=== PATIENT | female | born 1990 | race Caucasian/White ===

== ENCOUNTER 2022-04-05 12:29 | Emergency (ER) | payer MEDICAID, SELFPAY ==
--- NOTE | ~2022-04-05 | XR_ITS ---
EXAMINATION: XR KNEE, RIGHT CLINICAL INFORMATION: Fall. Right knee swelling. COMPARISON: None TECHNIQUE: Four views of the right knee. FINDINGS: No fracture or dislocation. Suprapatellar soft tissue density may reflect a small joint effusion. XR/XR knee RT 4V IMPRESSION: Possible small suprapatellar joint effusion. No fracture seen.
--- NOTE | ~2022-04-05 | XR_ITS ---
EXAMINATION: XR ELBOW, LEFT CLINICAL INFORMATION: Fall with left elbow pain COMPARISON: None TECHNIQUE: AP, lateral, and oblique views of the left elbow. FINDINGS: The bones and soft tissues are normal. No fracture or joint effusion. Alignment is anatomic. Joint spaces are maintained. XR/XR elbow LT min 3V IMPRESSION: Normal left elbow.
[2022-04-05 13:10] VITALS: BP 149/76; PULSE 90; RESP 18; TEMP 36.3; O2SAT 98; BMI 47.2
--- NOTE | 2022-04-05 14:17 | ED_ITS ---
HPI - General Adult General Chief complaint: Extremity Injury, Lower Stated complaint: R knee pain/L arm pain from fall Time Seen by Provider: 04/05/22 14:14 Source: patient Mode of arrival: ambulatory Limitations: no limitations History of Present Illness HPI narrative: Patient is a 31 year old assigned female at with no reported medical history presenting to the emergency department today with right knee pain and left elbow pain. Patient states that a few weeks ago she attempted to break up a dog fight and fell, landing on her right knee. Patient states that since then, she has had pain to her right knee and left elbow. Patient states that she has previously had issues with the left rotator cuff. Patient denies any dizziness, lightheadedness, abdominal pain, nausea, vomiting, fever, chills, blurry vision, double vision, loss of vision, chest pain, difficulty breathing, shortness of breath, back pain, night sweats, pain with urination, increased urinary frequency, increased urinary urgency, blood in her urine or stool, syncope or a near syncopal episode, bowel incontinence, bladder incontinence, bowel retention, bladder retention, or any other complaints at this time. Onset (ago): week(s) Radiation: non-radiation Severity: mild Severity scale (1-10): 3 Quality: dull Pain Consistency: constant Relieving factors: none Exacerbating factors: none Associated symptoms: denies other symptoms Treatments prior to arrival: none Related Data Allergies Allergy/AdvReac Type Severity Reaction Status Date / Time morphine Allergy Anaphylaxis Verified 04/05/22 13:09 Review of Systems Constitutional: Constitutional: Reports no additional constitutional complaints, Denies chills, Denies fever(s) and Denies night sweats Eyes: Eyes: Reports no additional eye complaints, Denies blurry vision, Denies change in vision, Denies diplopia, Denies eye discharge, Denies loss of vision and Denies eye pain ENT: Denies dizziness Cardiovascular: Cardiovascular: Reports no additional cardiovascular complaints, Denies chest pain, Denies lightheadedness, Denies Loss of Consciousness and Denies dyspnea Respiratory: Respiratory: Reports no additional respiratory complaints and Denies dyspnea Gastrointestinal: Gastrointestinal: Reports no additional gastrointestinal complaints, Denies abdominal pain, Denies melena, Denies hematochezia, Denies change in bowel habits and Denies change in stool character Genitourinary: Genitourinary: Denies hematuria, Denies urinary frequency, Denies dysuria, Denies urinary incontinence, Denies urinary hesitancy and Denies urinary urgency Musculoskeletal: Musculoskeletal: Reports no additional musculoskeletal complaints, Denies numbness and Denies tingling Comments: right knee pain, left elbow pain Neurologic: Denies dizziness, Denies loss of vision, Denies numbness and Denies tingling Psychiatric: Psychiatric: Reports no additional psychiatric complaints Endocrine: Endocrine: Reports no additional endocrine complaints Hematologic/Lymphatic: Hematologic/Lymphatic: Reports no additional hematologic/lymphatic complaints Allergic/Immunologic: Allergic/Immunologic: Reports no additional allergic/i mmunologic complaints [facility] Past Medical History Attestation statement: The following information was validated with the patient. Source: old records reviewed Social History Social History Advance Directives: Yes Advance Directives Information Provided: Yes Advance Directives on File: No Physical Exam ED Vital Signs: Vital Signs - 24 hr 04/05/22 13:10 Temperature 97.4 F Pulse Rate 90 Respiratory Rate 18 Blood Pressure 149/76 H Pulse Oximetry 98 Oxygen Delivery Method Room Air BMI result Body Mass Index 47.2 Const General: cooperative, no acute distress, alert and awake Nutritional Appearance: well nourished Orientation/consciousness: patient oriented x3 Limitations: no limitations HENMT Head: Yes normal to inspection and Yes atraumatic Ears: hearing grossly normal bilaterally and external ears normal General nose exam: Normal external nose present, no nasal discharge noted and no epistaxis Face and sinus: Yes normal facial exam, No abrasion and No laceration Mouth: Normal oral and palatal mucosa present, no drooling and no muffled voice Eyes General: appearance normal, both eyes and all related structures Periorbital: periorbital findings normal Eyelids: Yes eyelids normal Conjunctivae: conjunctivae normal Pupils: Equal, round and reactive pupils present EOM: EOMs intact bilaterally Neck Neck: Yes normal visual inspection, Yes full ROM and Yes no lymphadenopathy Chest Chest palpation & inspection: normal inspection of the chest Resp Effort & Inspection: normal respiratory effort and able to speak in complete sentences Auscultation: clear to auscultation bilaterally Cardio Rate: regular rate Rhythm: regular rhythm GI Inspection: Yes normal to inspection Neuro General: patient oriented x3 and moves all extremities Cranial nerves: Yes Equal, round and reactive pupils present Cognition (Neuro): normal cognition Motor exam (neuro): 5/5 motor strength present throughout Sensory Exam: Normal double simultaneous stimulation for sensation Coordination: [id number] test normal Extrem General: Yes normal to inspection, Yes full ROM and Yes capillary refill normal Psych Appearance: grossly normal Mental Status: mental status grossly normal Affect: normal affect Attitude: cooperative Thought process: Normal thought process present Thought content: Normal thought content present Insight: Good insight present (Psych) Medical Decision Making MDM Narrative Medical decision making narrative: Patient is a 31 year old assigned female at with no reported medical history presenting to the emergency department today with right knee pain and left elbow pain. Patient's physical exam was unremarkable. Patient's left elbow and right knee x-rays showed no acute process. I explained my physical exam findings as well as all test results to the patient. I answered all questions asked by the patient. I stressed the importance of the patient taking her medication as prescribed. I stressed the importance of the patient following up with her primary care provider. I stressed the importance of the patient returning to the emergency department immediately if her symptoms were to worsen or if she were to develop any dizziness, shortness of breath, difficulty breathing, chest pain, blurry vision, loss of vision, nausea, vomiting, abdominal pain, fever, chills, back pain, or any other complaints. Patient verbalized agreement and understanding with this treatment plan and discharge. Medical Records Medical records reviewed: Yes I reviewed the patient's medical records. Imaging Data Left elbow x-ray: Attestation: I personally reviewed and interpreted this imaging study as follows: My impression: No acute process. Radiologist's impression: EXAMINATION: XR ELBOW, LEFT CLINICAL INFORMATION: Fall with left elbow pain? COMPARISON: None? TECHNIQUE: AP, lateral, and oblique views of the left elbow. FINDINGS: The bones and soft tissues are normal. No fracture or joint effusion. Alignment is anatomic. Joint spaces are maintained.? XR/XR elbow LT min 3V IMPRESSION: Normal left elbow. Dictated By: Rufino Wagner Signed By: Electronically signed by Rufino?Bernard 04/05/22 1429 Right knee x-ray: Attestation: I personally reviewed and interpreted this imaging study as follows: My impression: No acute process. Radiologist's impression: EXAMINATION: XR KNEE, RIGHT? CLINICAL INFORMATION: Fall. Right knee swelling.? COMPARISON: None? TECHNIQUE: Four views of the right knee. FINDINGS: No fracture or dislocation. Suprapatellar soft tissue density may reflect a small joint effusion.? XR/XR knee RT 4V IMPRESSION: Possible small suprapatellar joint effusion. No fracture seen. Dictated By: Rufino Gilmore MD Signed By: Electronically signed by Rufino Gilmore MD 04/05/22 1417 Discharge Plan Discharge Clinical Impression: Fall Patient Disposition: Home, Self-Care Instructions: Fall Prevention (ED) Additional Instructions: Follow up with your primary care provider and if pain persists, an orthopedic provider. Return to the emergency department immediately if your symptoms worsen or if you develop any dizziness, shortness of breath, difficulty breathing, chest pain, blurry vision, loss of vision, nausea, vomiting, abdominal pain, fever, chills, back pain, or any other complaints. Referrals: [facility] – [place] Family Medicine [Provider Group] (Call to establish and follow up with a primary care provider. If you already have a primary care provider, please follow up with them. ) [facility] – [place] Primary Care, [facility] [Provider Group] (Call to establish and follow up with a primary care provider. If you already have a primary care provider, please follow up with them. ) [facility] – [place] Primary Care,[facility]ayana [Provider Group] (Call to establish and follow up with a primary care provider. If you already have a primary care provider, please follow up with them. ) [facility] – [place] [facility] [Provider Group] (If your pain persists, call to establish and follow up with an orthopedic provider. ) Stand Alone Forms: Work/School Release Interventions: ED Discharge Assessment Last Done: 04/05/22 15:07 Discharge Date/Time: 04/05/22 15:07 Print Language: [place]
--- NOTE | 2022-04-05 15:04 | PC.NURSE ---
Discharge instructions provided to pt. Pt verbalizes understanding.
== END 2022-04-05 15:07 | disposition home or self-care (01) ==
PROVIDERS: Emergency Provider Emergency Medicine
DX: M25.561 Pain in right knee (principal); M25.522 Pain in left elbow; Z91.81 History of falling
CPT/HCPCS: 73080; 73564; 99283

== ENCOUNTER 2022-11-27 16:16 | Emergency (ER) | payer OTHER, SELFPAY ==
--- NOTE | ~2022-11-27 | XR_ITS ---
EXAMINATION: XR HIP, RIGHT CLINICAL INFORMATION: Pain COMPARISON: None available. TECHNIQUE: Two views of the right hip. Pelvis one view. FINDINGS: No radiographic evidence of acute fracture. Striated lucencies projected over the proximal femur appear to be related to overlapping densities. Alignment is anatomic. Hip joint space is maintained. Left hip alignment is anatomic. Hip joint space is maintained. No acute pelvic fractures identified. SI joints and symphysis pubis are intact. Probable small phlebolith in the pelvis. XR/XR hip RT w PEL1V IMPRESSION: No radiographic evidence of acute fracture or dislocation.
--- NOTE | ~2022-11-27 | XR_ITS ---
EXAMINATION: XR LUMBOSACRAL SPINE CLINICAL INFORMATION: Numbness, pain right lower extremity COMPARISON: None available. TECHNIQUE: Three views of the lumbosacral spine. FINDINGS: Vertebral body heights are maintained. No evidence of acute fracture. The disc spaces are preserved. Few small foci of calcification / endplate spurs in the lower thoracic spine.. Posterior elements appear intact No diastasis of the SI joints. Limited SI joint evaluation on the provided views. No acute pelvic fractures identified.. 4 mm density in the right upper quadrant, nonspecific, could reflect bowel content, renal calculus or gallstone. Nonobstructive bowel gas pattern. XR/XR lumbar spine 2-3V IMPRESSION: No evidence of acute fracture or subluxation..
[2022-11-27 16:37] VITALS: BP 141/85; PULSE 93; RESP 18; TEMP 36.4; O2SAT 99; BMI 48.1
--- NOTE | 2022-11-27 16:37 | ED_ITS ---
HPI - Extremity Problem General Chief complaint: General Medical Stated complaint: right thigh numbness and pain Time Seen by Provider: 11/27/22 17:12 Source: patient Mode of arrival: ambulatory Limitations: no limitations History of Present Illness HPI Narrative: 32 yo female with history of morbid obesity, asthma, who presents to the ER for evaluation of worsening non-traumatic right lateral thigh pain and numb sensation for the last 1 week. 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 Denies back pain or injury. she states the pain is sharp and sometimes burning in nature. no rash. it is worse when she touches the right lateral thigh and when she walks. she denies any known injury. denies weakness in the leg. MD Complaint: extremity pain Onset (ago): week(s) (1) Pain Consistency: constant and other (worsening) Location: right and lower extremity Severity scale (1-10): 8 Quality: burning, aching and sharp Radiation: none Relieving factors: immobilization Exacerbating factors: walking and palpation Associated symptoms: denies other symptoms Related Data Previous Rx's Medication Instructions Recorded cyclobenzaprine 10 mg tablet 10 mg PO TID PRN muscle spasm #14 11/27/22 tabs prednisone 50 mg tablet 50 mg PO DAILY #5 tabs 11/27/22 Allergies Allergy/AdvReac Type Severity Reaction Status Date / Time morphine Allergy Anaphylaxis Verified 04/05/22 13:09 shellfish derived Allergy Anaphylaxis Verified 11/27/22 16:42 Review of Systems Review of Systems: Yes all other systems are reviewed and are negative [facility] Social History Social History Alcohol intake: never Smoked in Last 30 Days: No Use of substances other than those prescribed or required for medical reasons: No Advance Directives: No Advance Directives Information Provided: No Physical Exam Vital Signs: Vital Signs: Last Vital Signs Temp 97.6 F 11/27/22 16:37 Pulse 89 11/27/22 19:16 Resp 19 11/27/22 19:16 BP 145/87 H 11/27/22 19:16 Pulse Ox 99 11/27/22 19:16 O2 Del Method Room Air 11/27/22 19:16 BMI result Body Mass Index 48.1 Appearance: Alert. Oriented X3. No acute distress. Head: normocephalic, atraumatic. Eyes: Pupils equal, round and reactive to light. ENT: Pharynx normal. No tonsillar swelling or exudate. Neck: Normal inspection. Neck supple. CVS: Normal heart rate and rhythm. Pulses normal. Respiratory: No respiratory distress. Breath sounds normal. Abdomen: Obese Soft and nontender. +BS x4 Skin: Skin warm and dry. Normal skin color. Normal skin turgor. No rashes. Extremities: Normal inspection of the bilateral lower extremities. lower extremity edema. No joint swelling. right lateral thigh tender to palpation without any overlying skin changes or palpable abnormality. normal ROM of the right hip and right knee. no tenderness of the lumbar area or spine Neuro/psych: Oriented X 3. normal reflexes. sensory deficit of a large area on the right lateral thigh, no motor deficits. CN II-XII intact. Normal speech and cognition. Antalgic gait Medical Decision Making Medical Decision Making MDM Narrative: 32 yo female presents to the ER for evaluation of right lateral thigh pain and numb sensation, worsening over 1 week. area is tender. primary complaint is pain with some alteration in sensation but no full numbness. neuro exam otherwise nonfocal. xrays of the lumbar spine and hip are unremarkable. concern for possible neuropathic pain - will start on short course of steroids and muscle relaxers, haver her follow up with her PCP. return precautions discussed. stable for d/c home, patient agrees w/ plan and all questions were answered. Differential Diagnosis Differential Diagnoses: The differential diagnosis associated with the presentation includes sciatica, lumbar radiculopathy, muscle strain/spasm, early zoster, less likely central neurological process like stroke or MS Independent Interpretation I performed an independent interpretation of an: Plain X-Ray Interpretation: xrays lumbar spine and right hip reviewed - no acute fx, agree w/ radiology read Radiology Impression Discussion of test interpretation with radiology: I have reviewed the radiologist's reading. Radiologist Impression: XR/XR lumbar spine 2-3V IMPRESSION: No evidence of acute fracture or subluxation.. XR/XR hip RT w [id number] IMPRESSION: No radiographic evidence of acute fracture or dislocation. External Record Review External record reviewed: Prior outpatient radiology Prescription Management I considered prescription management with: Pain Medication Chronic Conditions Patient?s care impacted by: Other (morbid obesity) Critical Care Time Critical Care Time Critical Care Time: No Discharge Plan Discharge Clinical Impression: Neuropathic pain of right thigh Patient Disposition: Home, Self-Care Instructions: Paresthesia (ED) Additional Instructions: your x-rays today were unremarkable take the prescribed medications as directed - you pain is likely nerve related follow up with a primary care physician for ongoing management If you develop new or worsening symptoms call 911 or come back to the ER for further evaluation. Prescriptions: New prednisone 50 mg tablet 50 mg PO DAILY Qty: 5 0RF cyclobenzaprine 10 mg tablet 10 mg PO TID PRN (Reason: muscle spasm) Qty: 14 0RF Referrals: [facility] – [place] [facility] [Provider Group] [facility] – [place] [facility] [Provider Group] Stand Alone Forms: Work/School Release Interventions: ED Discharge Assessment Last Done: 11/27/22 19:17 Discharge Date/Time: 11/27/22 19:17
--- OUTSIDE RECORDS SUMMARY | 2022-11-27 17:44 | XMS_ITS | Patient Health Record ---
Author Name Unknown Organization [facility] 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 Problem Depression F32.9 confirmed [id number] Problem Insomnia G47.00 confirmed [id number] ALLERGIES Allergen (clinical drug ingredient) Drug/Non Drug Allergy documented on EMR Reaction Allergy Type Onset Date Status morphine Morphine Sulfate([facility] Code:[address]-36) anaphylaxis Drug Allergy Active Shellfish shellfish anaphylaxis Non Drug Allergy A ctive ENCOUNTERS from 1989 to 2022-11-27 Encounter Location Date Provider Diagnosis [place] [id number] [id number] Dec, Franklin Selam [facility] [address] [id number] Dec, Mirna Sanchez (IM PGY3) [address] [id number] Dec, Katie Fitch ( PGY3) Anxiety disorder F41.9 ; Screening for endocrine disorder Z13.29 ; Bruising T14.8XXA ; Muscle spasm M62.838 and Migraine G43.909 [facility] Main [address] [place] [address] 10 Apr, 2020 [facility] [address] [place] [address] Mar, [facility] Encounter for laboratory testing for COVID-19 virus Z11.[address] [id number] 12 Mar, 2020 Mirna Sanchez (IM PGY3) URI with cough and congestion J06.9 ; Encounter to establish care Z76.89 ; Screening for endocrine disorder Z13.29 ; Migraine G43.909 ; Depression F32.9 ; Anxiety disorder F41.9 and Insomnia G47.00 [facility] Main [address] [place] [address] 07 Mar, [address] [id number] Feb, Provider Dummy [address] [id number] Feb, Provider Dummy SOCIAL HISTORY Tobacco Use: Social History Observation Description Date Details (start date - stop date) Current Smoker Sex Assigned At : Social History Observation Description Sex Assigned At Female Tobacco Use/Smoking Question Answer Notes Are you a current smoker How many cigarettes a day do you smoke? 6-10 How often do you smoke cigarettes? every day Sexual History Question Answer Notes Had sex in the past 12 months (vaginal, oral, or anal)? Yes Last menstrual period 12/14/2020 Have you ever had a Sexually transmitted disease ? No with Men only Use protection? No REASON FOR REFERRAL No Information VITAL SIGNS from 1989 to 2022-11-27 Temperature 99.4 degrees Fahrenheit Dec, Heart Rate 97 /min Dec, Weight 298.2 lbs Dec, BMI 51.18 kg/m2 Dec, Height 64.0 in Dec, Respiratory Rate 17 /min Dec, Height-cm 162.56 cm Dec, Weight-kg 135.26 kg Dec, Blood pressure systolic 140 mm Hg Dec, Blood pressure diastolic 99 mm Hg Dec, MEDICATIONS Medication SIG (Take, Route, Frequency, Duration) Notes Start Date End Date Status SEROquel 50 MG 1 tablet at bedtime Orally Once a day Not-Taking traZODone HCl 100 MG 1 tablet at bedtime Orally Once a day Not-Taking Sertraline HCl 100 MG 1 tablet Orally Once a day Not-Taking busPIRone HCl 10 MG 1 tablet Orally Twic e a day Not-Taking REASON FOR VISIT No Information MEDICAL (GENERAL) HISTORY Type Description Date Medical History Depression Medical History Anxiety disorder Medical History Insomnia Medical History 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 Surgical History 4 C-sections with tubal ligatio n MENTAL STATUS No Information ASSESSMENTS Encounter Date Diagnosis Assessment Notes Treatment Notes Treatment Clinical Notes Dec, Anxiety disorder (ICD-10 - F41.9) 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 will be restarting Seroquel soon per the patient, will receive prescription from other MD Dec, Screening for endocrine disorder (ICD-10 - Z13.29) patient having vague symptoms of weight gain and no appetite has bruising on her back with no associated trauma will order tests to evaluate her electrolyte imbalance as a possible reason for muscle cramps will order tests to check for anemia, hypothyroidism, and any platelet abnormalities Dec, Bruising (ICD-10 - T14.8XXA) bruises easily Bleads from her gums on flossing likely to have platelet disorder or von Willebrand, further blood tests to follow Dec, Muscle spasm (ICD-10 - M62.838) Poor appetite, drinking lots of water Encouraged patient to drink Gatorade and each whatever she is able to tolerate Dec, Migraine (ICD-10 - G43.909) worsening for the past six months reports chronic migraines almost every day has not had any abortive or prophylactic therapy as of yet will discuss at next visit and consider starting beta lisbeth Dec, Other Discussed with resident-agree with assessment and plan- Minimal change disease. H/o Anemia- Cramping- No proper diet- labs ordered. Depressed on no meds. Ahmed Apr, Other Stay quarantine d until you receive results from [facility]/Health Department. We will notify you of a positive or negative result. If you feel your symptoms are worsening or are in any respiratory distress, please call the nearest emergency room. Explain to them your condition and that you are on surveillance for COVID19 and ask them to instruct you further. Please do not walk into an emergency room without calling ahead. If you have any further complaints or concerns, please call our office at . Two kinds of tests are available for COVID-19: viral tests and antibody tests.A viral test tells you if you have a current infection (this is the one we are conducting)An antibody test tells you if you had a previous infectionAn antibody test may not be able to show if you have a current infection, because it can take 1-3 weeks after infection to make antibodies. We do not know yet if having antibodies to the virus can protect someone from getting infected with the virus again, or how long that protection might last. RESULTS If you test positive for COVID-19 by a viral test, you should remain quarantined for 10 days since symptoms first appeared. You should be 3 days (72 hours) fever-free without the use of any anti-pyretics (fever-reducing medication). Symptoms must be improving. Note, because symptoms cannot be used to gauge where these individuals are in the course of their illness, it is possible that the duration of viral shedding could be longer or shorter than 10 days after their first positive test. As a result, we advise you be retested prior to returning to work.If you test negative for COVID-19 by a viral test, you probably were not infected at the time your sample was collected. However, that does not mean you will not get sick. The test result only means that you did not have COVID-19 at the time of testing. If you test positive or negative for COVID-19, no matter the type of test, you still should take preventive measures to protect yourself and others. Mar, Encounter for laboratory testing for COVID-19 virus (ICD-10 - Z11.59) Stay quarantined until you receive results from [facility]/Health Department. We will notify you of a positive or negative result. If you feel your symptoms are worsening or are in any respiratory distress, please call the nearest emergency room. Explain to them your condition and that you are on surveillance for COVID19 and ask them to instruct you further. Please do not walk into an emergency room without calling ahead. If you have any further complaints or concerns, please call our office at . Mar, Other Two kinds of te sts are available for COVID-19: viral tests and antibody tests.A viral test tells you if you have a current infection (this is the one we are conducting)An antibody test tells you if you had a previous infectionAn antibody test may not be able to show if you have a current infection, because it can take 1-3 weeks after infection to make antibodies. We do not know yet if having antibodies to the virus can protect someone from getting infected with the virus again, or how long that protection might last. RESULTS If you test positive for COVID-19 by a viral test, you should remain quarantined for 10 days since symptoms first appeared. You should be 3 days (72 hours) fever-free without the use of any anti-pyretics (fever-reducing medication). Symptoms must be improving. Note, because symptoms cannot be used to gauge where these individuals are in the course of their illness, it is possible that the duration of viral shedding could be longer or shorter than 10 days after their first positive test. As a result, we advise you be retested prior to returning to work.If you test negative for COVID-19 by a viral test, you probably were not infected at the time your sample was collected. However, that does not mean you will not get sick. The test result only means that you did not have COVID-19 at the time of testing. If you test positive or negative for COVID-19, no matter the type of test, you still should take preventive measures to protect yourself and others. Mar, URI with cough and congestion (ICD-10 - J06.9) - Ptn with symptoms of now improving non-productive cough, SOB, loss of smell and taste - Suspicious of Covid-19 infection - Seen at [facility] ED 1 week ago, CXR done negative for pneumonia - Completed 5 day course of Azithromycin and Prednisone - F/u Covid results Mar, Encounter to establish care (ICD-10 - Z76.89) - New ptn, telephone encounter - ptn encouraged to come in person for further assessment Mar, Screening for endocrine disorder (ICD-10 - Z13.29) - 8 month history of fatigue, insomnia, headaches, hair shedding, sores on tongue, abdominal pain, intermittent spotting between regular periods, constipation and butterfly rash on face - Consider Hypothyroidism vs SLE - FHx significant for autoimmune disease, but ptn unaware of which one/s specifically - Ptn encouraged to make an in-ptn appointment for in person evaluation and lab tests as soon as possible Mar, Migraine (ICD-10 - G43.909) - C/o intermittent sharp headaches starting from base of skull with readiation to right denominational, associated with nausea and lasting hours to 1-2 days - Sensitivity to light and sound; relieved by rest - Ptn encouraged to come in for further evaluation - Recommend Tylenol or NSAID for symptom control/ Mar, Depression (ICD-10 - F32.9) - On Sertraline - Follows with Psychiatrist at [facility] Mar, Anxiety disorder (ICD-10 - F41.9) - On Buspirone - Follows with Psychiatrist at [facility] Mar, Insomnia (ICD-10 - G47.00) - On Trazadone 100 but states that medication is no longer effective - Encourgaed to use melatonin 10mg along with Trazodone - Insomnia likely secondary to underlying autoimmune disease, further investigation required PLAN OF TREATMENT Treatment Notes Assessment Notes Clinical Notes Anxiety disorder patient currently [facility] psychiatrist as well as payroll therapist will be restarting Seroquel soon per the patient, will receive prescription from other MD Insomnia - On Trazadone 100 b ut states that medication is no longer effective - Encourgaed to use melatonin 10mg along with Trazodone - Insomnia likely secondary to underlying autoimmune disease, further investigation required URI with cough and congestion - Ptn with symptoms of now improving non-productive cough, SOB, loss of smell and taste - Suspicious of Covid-19 infection - Seen at [facility] ED 1 week ago, CXR done negative for pneumonia - Completed 5 day course of Azithromycin and Prednisone - F/u Covid results Encounter to establish care - New ptn, t elephone encounter - ptn encouraged to come in person for further assessment Screening for endocrine disorder patient having vague symptoms of weight gain and no appetite has bruising on her back with no associated trauma will order tests to evaluate her electrolyte imbalance as a possible reason for muscle cramps will order tests to check for anemia, hypothyroidism, and any platelet abnormalities Encounter for laboratory medardo ting for COVID-19 virus Stay quarantined until you receive results from [facility]/Health Department. We will notify you of a positive or negative result. If you feel your symptoms are worsening or are in any respiratory distress, please call the nearest emergency room. Explain to them your condition and that you are on surveillance for COVID19 and ask them to instruct you further. Please do not walk into an emergency room without calling ahead. If you have any further complaints or concerns, please call our office at . Bruising bruises easily Bleads from her gums on flossing likely to have platelet disorder or von Willebrand, further blood tests to follow Screening for endocrine disorder - 8 mon history of fatigue, insomnia, headaches, hair shedding, sores on tongue, abdominal pain, intermittent spotting between regular periods, constipation and butterfly rash on face - Consider Hypothyroidism vs SLE - FHx significant for autoimmune disease, but ptn unaware of which one/s specifically - Ptn encouraged to make an in-ptn appointment for in person evaluation and lab tests as soon as possible Anxiety disorder - On Buspirone - Follows with Psychiatrist at [facility] Depression - On Sertraline - Follows with Psychiatrist at [facility] Migraine - C/o intermittent s harp headaches starting from base of skull with readiation to right denominational, associated with nausea and lasting hours to 1-2 days - Sensitivity to light and sound; relieved by rest - Ptn encouraged to come in for further evaluation - Recommend Tylenol or NSAID for symptom control/ Muscle spasm Poor appetite, drink ing lots of water Encouraged patient to drink Gatorade and each whatever she is able to tolerate Migraine worsening for the pa st six months reports chronic migraines almost every day has not had any abortive or prophylactic therapy as of yet will discuss at next visit and consider starting beta lisbeth Pending Tests Test Name Order Date CBC With Differential/Platelet-[facility] 2020 Magnesium - Total, Blood 2020-12-18 TSH reflex to T4F 2020-12-18 Basic Metabolic Panel (8) 2020-12-18 von Willebrand Factor Screen 2020-12-18 Insurance Providers Payer Name Payer Address Payer Phone Insured Name Patient Relationship to Insured Coverage Start Date Coverage End Date Subscriber Number Group Number [facility] [address] [facility] [id number] Daphney Angel Self - patient is the insured [id number]
[2022-11-27 19:16] VITALS: BP 145/87; PULSE 89; RESP 19; O2SAT 99
== END 2022-11-27 19:17 | disposition home or self-care (01) ==
PROVIDERS: Emergency Provider Emergency Medicine
DX: G57.81 Other specified mononeuropathies of right lower limb (principal); M79.604 Pain in right leg; R60.0 Localized edema; E66.01 Morbid (severe) obesity due to excess calories; Z68.42 Body mass index [BMI] 45.0-49.9, adult
CPT/HCPCS: 72100; 73502; 99283

== ENCOUNTER 2023-07-14 09:35 | Emergency (ER) | payer SELFPAY ==
[2023-07-14 09:41] VITALS: BP 147/85; PULSE 74; RESP 20; TEMP 37.2; O2SAT 98; BMI 51.5
--- NOTE | 2023-07-14 10:15 | ED.GENADULT ---
HPI - General Adult General Chief complaint: Dental/Oral Stated complaint: l jaw swelling Time Seen by Provider: 07/14/23 10:15 Source: patient Mode of arrival: ambulatory History of Present Illness HPI narrative: Patient is a 32-year-old female presenting to the emergency department with complaint of left upper jaw pain. States that she lost a filling to her molar around 1 year ago. States pain became severe over the past few days. Denies fevers/chills/sweats. Denies any difficulty swallowing. Does report increased pain with opening jaw but is able to open and close jaw. Denies any difficulty swallowing. States does not currently have a dentist. Denies any discharge or drainage. MD complaint: Dental pain Onset (ago): day(s) Location: mouth Severity: severe Quality: aching Pain Consistency: constant Relieving factors: none Exacerbating factors: eating Associated symptoms: denies other symptoms Treatments prior to arrival: none Related Data Previous Rx's Medication Instructions Recorded cyclobenzaprine 10 mg tablet 10 mg PO TID PRN muscle spasm #14 11/27/22 tabs prednisone 50 mg tablet 50 mg PO DAILY #5 tabs 11/27/22 amoxicillin 875 mg-potassium 1 tab PO BID #14 tabs 07/14/23 clavulanate 125 mg tablet ibuprofen 600 mg tablet 600 mg PO Q6H PRN pain #20 tabs 07/14/23 Allergies Allergy/AdvReac Type Severity Reaction Status Date / Time morphine Allergy Anaphylaxis Verified 07/14/23 09:44 shellfish derived Allergy Anaphylaxis Verified 07/14/23 09:44 Review of Systems Review of Systems: As per HPI. Yes all other systems are reviewed and are negative Constitutional: Constitutional: Reports as per HPI [facility] Social History Social History Alcohol intake: never Advance Directives: No Physical Exam ED Vital Signs: Vital Signs - 24 hr 07/14/23 09:41 Temperature 98.9 F Pulse Rate 74 Respiratory Rate 20 Blood Pressure 147/85 H Pulse Oximetry 98 Oxygen Delivery Method Room Air BMI result Body Mass Index 51.5 Vital signs have been reviewed and appear to be correct. Blood pressure normal. Heart rate normal. Respiratory rate normal. Temperature normal. Oxygen saturation normal. Const General: cooperative, healthy appearing and no acute distress Orientation/consciousness: oriented to person, oriented to place, oriented to time and patient oriented x3 Limitations: no limitations [facility] Head: Yes normocephalic and Yes atraumatic Ears: external ears normal General nose exam: Normal external nose present Face and sinus: Yes normal facial exam, Yes face symmetric, No edema and No sinus tenderness Mouth: Normal oral and palatal mucosa present, lip normal, tongue normal, oropharynx normal, moist mucous membranes, No abnormal TMJ, no trismus and No restricted motion Teeth and gingiva: abnormal tooth and associated gingiva upper left third molar tender; without any associated gingival edema and without associated gingival fluctuance and caries Teeth image: 1. Tenderness, erythematous gingiva without fluctuance or drainage Throat: Yes uvula midline Eyes Pupils: Equal, round and reactive pupils present Neck Neck: Yes normal visual inspection and Yes supple Resp Effort & Inspection: normal respiratory effort and able to speak in complete sentences Auscultation: clear to auscultation bilaterally Cardio Rate: regular rate Rhythm: regular rhythm Heart sounds: S1 normal heart sound present and S2 normal heart sound present Skin General skin exam: elasticity normal and turgor normal Neuro General: oriented to person, oriented to place, oriented to time, patient oriented x3, moves all extremities, no focal motor deficits and CN's II-XI intact bilaterally Cranial nerves: Yes Equal, round and reactive pupils present Cognition (Neuro): normal cognition Extrem General: Yes full ROM Psych Mental Status: mental status grossly normal Affect: normal affect Thought process: Normal thought process present Medical Decision Making Medical Decision Making MDM Narrative: Patient is a 32-year-old female presenting to the emergency department with complaint of left upper jaw pain. On exam patient is awake, A+Ox3, VS WNL, afebrile, normal neurological exam without focal deficits, physical exam findings as above. Given reported symptoms and physical exam findings, initial differential includes dental pain, dental infection, abscess. Do not suspect Cruz's angina. 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 Will treat patient with antibiotics and pain medication. Patient provided with list of dental clinics in the emergency department. Instructed patient it is essential that she follows up with a dentist. Return precautions discussed. Patient verbalized understanding of and agreement with plan. Differential Diagnosis Differential Diagnoses: The differential diagnosis associated with the presentation includes As per MDM. External Record Review External record reviewed: Inpatient record, Office record and Outpatient record Prescription Management I considered prescription management with: Pain Medication and Antibiotic Discharge Plan Discharge Clinical Impression: Toothache, Dental caries Patient Disposition: Home, Self-Care Instructions: Toothache (ED), Tooth Extraction (DC) Additional Instructions: You were evaluated in the emergency department today for complaint of dental pain. You are being treated for a dental infection with antibiotics. Please complete the full course of antibiotics as prescribed even if your symptoms improve. You are being prescribed pain medication, please take this as prescribed. IT IS IMPORTANT THAT YOU FOLLOW UP WITH YOUR DENTIST THIS TOOTH WILL LIKELY REQUIRE EXTRACTION. You were provided with a list of dental clinics in the emergency department today. Please call 1 to schedule an appointment. Return to the emergency department if you develop worsening pain, swelling, difficulty swallowing, difficulty breathing, fever, or any other concerning symptoms. Prescriptions: New amoxicillin-pot clavulanate 875-125 mg tablet 1 tab PO BID Qty: 14 0RF ibuprofen 600 mg tablet 600 mg PO Q6H PRN (Reason: pain) Qty: 20 0RF No Action prednisone 50 mg tablet 50 mg PO DAILY Qty: 5 0RF cyclobenzaprine 10 mg tablet 10 mg PO TID PRN (Reason: muscle spasm) Qty: 14 0RF Stand Alone Forms: Work/School Release
[2023-07-14 11:01] LABS: COVID-19 Test Negative (Negative); IDNOW Serial# 58CA691E
[2023-07-14 11:06] VITALS: BP 146/86; PULSE 72; RESP 16; TEMP 36.3; O2SAT 97
[2023-07-14 11:28] LABS: IDNOW Serial# 9DB6401D; Influenza A Negative (Negative); Influenza B2 Negative (Negative)
== END 2023-07-14 11:10 | disposition home or self-care (01) ==
PROVIDERS: Registered Nurse Emergency; Emergency Provider Emergency Medicine
DX: K02.9 Dental caries, unspecified (principal); R68.84 Jaw pain; Z11.52 Encounter for screening for COVID-19
CPT/HCPCS: 87502; 87635; 99283; 99284